=== PATIENT | female | born 2000 | race Caucasian/White ===

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

== ENCOUNTER → 2019-07-09 | Outpatient (CLI) | payer OTHER ==
[~2019-07-09] MED LIST changes: +SUMA50TA3 PO
--- NOTE | 2019-07-09 18:25 | KCIC ---
Two-view chest HISTORY: Lupus. Shortness of breath. COMPARISON: None FINDINGS: Cardiomediastinal silhouette and hilar shadows appear within normal limits. No evidence of pneumothorax, pleural effusion or focal infiltrate. Bones appear grossly intact. IMPRESSION: No evidence of consolidating infiltrate. Electronically signed by: Davon Blackwood MD (07/09/2019 6:23 PM) [id number]
== END | disposition home or self-care (01) ==
LOC: KCIC 14:38
PROVIDERS: ATTEND Nurse Practitioner
DX: M32.9 Systemic lupus erythematosus, unspecified (principal); R06.00 Dyspnea, unspecified
CPT/HCPCS: 71046